=== PATIENT | female | born 1995 | race Caucasian/White ===

== ENCOUNTER 2017-11-07 12:00 | Inpatient (IN) ==
[2017-11-07] MEDS ORDERED: Famotidine 20 MG/2 ML VIAL IVP PRN (12:46)
[2017-11-07] MEDS ORDERED: Naloxone 0.4 MG/ML INJ IVP PRN (12:46)
[2017-11-07] MEDS ORDERED: Metoclopramide 10 MG/2 ML VIAL IVP PRN (12:46)
[2017-11-07 13:13] LABS: Basophils % 0.2 %; Eosinophils # 0.1 K/mcL (0.0-0.6); Eosinophils % 0.4 %; Hemoglobin 12.1 g/dL (11.5-15.4); Immature Granulocytes % 0.7 % (0-4); Mean Corpuscular HGB Conc 34.6 g/dL (31.6-35.5); Mean Corpuscular Hemoglobin 29.3 pg (28.0-33.3); Mean Corpuscular Volume 84.7 fL (83.0-100.0); Mean Platelet Volume 9.7 fL (9.4-12.4); Monocytes # 0.5 K/mcL (0.0-1.3); Neutrophils # 9.7 K/mcL (1.6-8.9); Platelet Count 238 K/mcL (140-400); Red Blood Count 4.13 M/mcL (3.82-4.97); Red Cell Distribution Width 13.1 % (11.5-14.5); Segmented Neutrophils % 78.7 %
[2017-11-07 13:30] LABS: Amphetamine Screen,Urine Negative ng/mL (Cutoff=1000); Barbiturate Screen,Urine Negative ng/mL (Cutoff=200); Benzodiazepines Screen,Urine Negative ng/mL (Cutoff=200); Cannabinoid Screen,Urine Negative ng/mL (Cutoff = 50); Cocaine Screen,Urine Negative ng/mL (Cutoff= 300); Opiate Screen,Urine Negative ng/mL (Cutoff=300); Phencyclidine Screen,Urine Negative ng/mL (Cutoff=25)
[2017-11-07] MEDS: miSOPROStol 25 MCG TABLET VG SCH ×2 (14:53→18:44)
--- NOTE | 2017-11-07 15:21 | OB/GYN History & Physical ---
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 Wade is a 22 year old female at 39 weeks 3 days who presents for induction of labor. Notes she occasionally has been feeling mild contractions. Endorses movement, but denies vaginal bleeding, loss of clear fluid. complicated by maternal anemia. Currently denies headache, blurry vision, SOB, nausea, vomiting. Patient has been under the care of Dr. Smith throughout her . Dr. Smith is the current OB construction plumber. Labs: Blood Type: O negative Rh Status: Negative Hep B Surface Ag: Nonreactive HIV Ab: Nonreactive Treponema Ab: Negative G/C: Negative Varicella: Immune Rubella: Immune Urine Drug Screen: Negative Past Med Surg Social Fam HX - Past Medical History Attestation: Yes The following information was validated with the patient. Source: patient Medical history: no medical history Psychiatric history: no psych history - Past Surgical History Surgical History: no surgical history - Social History Smoking Status: Never smoker Smokeless Tobacco Status: No Alcohol use: none Drug use: none - Family History Mother Living Status: Still Living Hx Family Cardiac Disorders: No Hx Family Respiratory Disorders: No Hx Family Cancer: No Hx Family GI Disorders: No Hx Family Genitourinary Disorders: No Hx Family Endocrine Disorder: No Hx Family Musculoskeletal Disorders: No Hx Family Neuromuscular Disorders: No Hx Family Neurologic Disorders: No Hx Family HEENT Disorders: No Hx Family Autoimmune Disorders: No Hx Family Reproductive Disorders: No Hx Family Psychosocial Disorders: No Hx Family Medical Disorders: No Obstetrical History - Pregnancies : 1 Para: 0 Term: 0 : 0 Ab's: 0 Livin Medications and Allergies Vit/Iron Fumarate/FA [ Tablet] 1 each PO DAILY 11/07/17 [ History] 3 Allergy/AdvReac Type Severity Reaction Status Date / Time No Known Allergies Allergy Verified 04/05/16 17:25 Review of System OB All systems PM: reviewed and no additional remarkable complaints except as stated Exam - Vital Signs Vital signs: Vital Signs Reviewed and Stable - Constitutional Constitutional: well developed, well nourished, no acute distress, average body habitus - HEENT HEENT: EOMI, Normocephaly, Mucus Membranes Moist - Neck Neck exam: full ROM, normal inspection - Lungs Respiratory exam: CTAB - Cardiovascular Cardiovascular exam: RRR, +S1, +S2 - Abdomen Abdomen: Present: bowel sounds normal, gravid, non tender - Extremities Extremities exam: full ROM, normal capillary refill, normal inspection, warm, radial pulses palpable and symmetrical Deep Tendon Reflex Grade: 2+ Normal - Cervix Dilation: 1 (Per RN) Effacement: 50 Station: -2 Results Result Diagrams: 11/07/17 12:45 Abnormal lab results WBC 12.3 K/mcL (4.3-11.1) H 11/07/17 12:45 Hct 35.0 % (35.3-44.9) L 11/07/17 12:45 Neutrophils # 9.7 K/mcL (1.6-8.9) H 11/07/17 12:45 All other labs normal. - VTE Reasons for not Prescribing Prophylaxis: Treatment not Indicated - Low risk for VTE
[2017-11-07] MEDS ORDERED: *HR* FentaNYL (PF) 100 MCG/2 ML VIAL EP ONE (17:11)
[2017-11-07] MEDS ORDERED: Bupivacaine-MPF 0.25% 10 ML VIAL EP ONE (17:11)
--- NOTE | 2017-11-07 17:11 | Anesthesia Evaluation PreOp ---
Date of Encounter: 11/07/17 Time of Encounter: 17:09 - Past History Planned Operation: YENNIFER Cardiac History: Denies any Significant Hx Pulmonary History: Denies Any Significant HX CAREER DEVELOPMENT ASSOCIATE History: Denies Any Significant HX Other Medical History: Denies Any Significant HX Anesthesia History: No Prior Anesthetic Complications (never had any procedure requiring GA or NA; denies family h/o GA complications) : Yes Alcohol Use: none Drug use: none Medications and Allergies Vit/Iron Fumarate/FA [ Tablet] 1 each PO DAILY 11/07/17 [ History] 3 Allergy/AdvReac Type Severity Reaction Status Date / Time No Known Allergies Allergy Verified 04/05/16 17:25 - Meds/Allergy Pre-op Review Medications Reviewed: Yes Allergies Reviewed: Yes Beta Blockers on Current Med List: No Anesthesia Results - Labs 11/07/17 12:45 Anesthesia Exam 139/70, HR 104, RR 16 O2 Sat Height 1.57 m Weight 108.59 kg NPO (# of Hours): solids > 8hrs Pain Scale: 0 Pain Scale Used: Numeric (1 - 10) - HEENT Pupil (Motor): Pupils equal Mallampati: III Teeth: Normal Oral Opening: Greater than 3 - CAREER DEVELOPMENT ASSOCIATE LOC: Oriented CAREER DEVELOPMENT ASSOCIATE Motor: Normal RUE, Normal LUE, Normal RLE, Normal LLE, Normal Face CAREER DEVELOPMENT ASSOCIATE Sensory: Normal: RUE, LUE, RLE, LLE, Face - Cardiac Rhythm: Regular Murmur: None - Pulmonary Breath Sounds: bilateral Clear Respiratory Effort: Symmetrical Anesthesia Assess/Plan ASA Score: 2 Modified Fina Scale for Level of Consciousness: Cooperative, oriented, and tranquil Anesthetic Plan: Regional Autologous Blood: No Monitoring Plan: Standard Monitors Recovery Plan: Other
[2017-11-07] MEDS ORDERED: Bupivacaine-MPF 0.25% 10 ML VIAL ONE (17:13)
[2017-11-07] MEDS ORDERED: Lidocaine -MPF 1% 5 ML AMPUL ONE (17:13)
[2017-11-07] MEDS ORDERED: Lidocaine -MPF 2% 5 ML VIAL ONE (17:14)
[2017-11-07] MEDS ORDERED: *HR* FentaNYL (PF) 100 MCG/2 ML VIAL ONE (17:14)
[2017-11-07] MEDS ORDERED: Epidural Premix (fent/bupiv) 110 ML EP SCH (17:15)
--- NOTE | 2017-11-07 18:30 | OB Labor Progress Note ---
Date of Encounter: 11/07/17 Time of Encounter: 18:30 Labor Progress Note - Subjective Subjective: patient is comfortable - Vital Signs Vital Signs: VSS - Cervix Cervix: 1cm - Heart Tones Heart Tones: CAT 1 - Plan Plan: 2nd dose of cytotec given @ 6:30 reevaluate after dose is completed
--- NOTE | 2017-11-07 23:41 | OB Labor Progress Note ---
Date of Encounter: 11/07/17 Time of Encounter: 23:40 Labor Progress Note - Subjective Subjective: patient doing well - Vital Signs Vital Signs: VSS - Cervix Cervix: 2/60 - Heart Tones Heart Tones: CAT 1 - Plan Plan: will place caro balloon
[2017-11-08] MEDS: *HR* Nalbuphine 10 MG/ML AMPUL IVP PRN ×2 (04:40→10:47)
--- NOTE | 2017-11-08 07:04 | OB Labor Progress Note ---
Date of Encounter: 11/08/17 Time of Encounter: 07:04 Labor Progress Note - Subjective Subjective: she is feeling some ctxs but still comfortable - Vital Signs Vital Signs: VSS - Cervix Cervix: 1cm - Heart Tones Heart Tones: CAT 1 - Plan Plan: caro in place x6hrs, will re evaluate at shift change
[2017-11-08] MEDS ORDERED: Oxytocin 20 units/ LR 1000 mL 20 UNIT/1,000 ML BAG IVC SCH ×2 (07:45→23:17)
[2017-11-08] MEDS ORDERED: Ringers Solution, Lactated 1,000 ML ONE (08:01)
[2017-11-08] MEDS: Ringers Solution, Lactated 1,000 ML IVC SCH ×2 (08:26→15:59)
--- NOTE | 2017-11-08 09:20 | OB Labor Progress Note ---
Date of Encounter: 11/08/17 Time of Encounter: 09:18 Labor Progress Note - Subjective Subjective: Pt states feels occasional contractions - Cervix Cervix: 4-5/75/-2 - Heart Tones Heart Tones: 130/moderate/+accels/-decels - [place]edom Dukedom: q6-8 - Interventions Interventions: AROM for small amount clear fluid - Plan Plan: Continue pitocin per policy frequent repositioning anticipate
--- NOTE | 2017-11-08 13:28 | Anesthesia Procedures ---
Date of Encounter: 11/08/17 Time of Encounter: 12:15 Procedures: Anesthesia - Epidural/Spinal Patient ID/Chart reviewed: Yes Patient examined: Yes OB Eval: Gestational age: 39 OB Eval: : 1 OB Eval: Hx Para: 0 OB Eval: Dilated at (cm): 5 OB Eval: Contractions: Non-stressed pattern Supplemental Oxygen: None/Room Air Site Prep: Aseptic Technique, Sterile prep and drape, Povidone-Iodine 1% Patient position: upright Amount of Local Anesthetic used: 3 Touhy Needle Gauge: 18 Touhy Needle Depth (cm): 6 Catheter Depth at Skin (cm): 12 Test Dose (1.5% Lido + Epi): Volume given (mls): 3 Test Dose Result: Negative Infusion Rate (mls/hr): [address]: Tegaderm, Tape Interspace Used: L4-L5 Loss of Resistance (GISSEL): Yes Blood: No CSF: No Paresthesia: No Vitals + FHT's: stable throughout see nursing notes. epidural placed with ease no complications.
--- NOTE | 2017-11-08 14:01 | OB Labor Progress Note ---
Date of Encounter: 11/08/17 Time of Encounter: 00:15 Labor Progress Note - Subjective Subjective: Patient reports mild discomfort with contractions. Endorses good movement - Cervix Cervix: 1-2/70/-3 - Heart Tones Heart Tones: heart rate category 1 - [place]: Contractions 5+ minutes apart and palpate mild - Interventions Interventions: SVE Forde balloon placement-inflated to 60 mL - Plan Plan: Continue induction management Assessment Forde balloon hourly Anticipate
--- NOTE | 2017-11-08 21:26 | OB/GYN Progress Note ---
Date of Encounter: 11/08/17 Time of Encounter: 21:05 - Assessment and Plan (1) Spontaneous vaginal delivery Current Visit: Yes Status: Acute (2) Nuchal cord affecting delivery Current Visit: Yes Status: Acute (3) 39 weeks gestation of Current Visit: Yes Status: Acute Subjective - Subjective Principal diagnosis: S/P Vaginal Delivery Interval history: 22 year old female who is 39 weeks 4 days had a spontaneous vaginal delivery. Male 3165 g or 7 lbs DAV Tight nuchal chord around neck at time of delivery. EBL 75 mL Placenta intact Patient hemodynamically stable Patient reports: appetite normal, voiding normally, pain well controlled, ambulating normally [place]: doing well Objective - Latest Vital Signs Latest vital signs: Intake and Output 11/08/17 11/08/17 11/08/17 07:59 15:59 23:59 Intake Total 1000 / 1000 Balance 1000 / 1000 Intake: IV Fluids 1000 / 1000 Lactated Ringers 1,000 ML @ 125 1000 / 1000 mls/hr IVC .Q8H [facility] Rx#: [id number] - Exam Extremities: Present: normal Abdomen: Present: gravid. Absent: rigidity, distention Uterus: Present: firm Uterus Position: 1 Finger Above Umbilicus, Midline
--- NOTE | 2017-11-08 21:41 | OB/GYN Procedure Note ---
Delivery - Delivery Date: 11/08/17 Provider: Matti Landis (Lito Lazo, PGY-2) Intrapartum events: none Delivery induction: AROM, oxytocin, caro, misoprostol Delivery monitor: external FHT, external uterine Anesthesia: local, epidural Quantitated Blood Loss: 75 - Infant (s) Infant A Delivery Date: 11/08/17 Delivery Time: 21:05 Presentation: vertex Position: DAV Route of delivery: Gender: Male Viability: Viable Pounds: 7 Ounces: 0 Weight Gram: 3165 kg at 1 minute: 8 at 5 mins: 9 Shoulder Dystocia: not encountered Specimens collected: cord blood Placenta: spontaneous Cord: nuchal cord, 3 umbilical vessels, nuchal cut - Repair Episiotomy: none Laceration Description: None - Complications Delivery complications: none - Disposition Mom disposition: stable in LDR disposition: stable in LDR - Comments Comments: Patient progressed to complete and on the perineum. Delivered a live male weighing 7 pounds. Apgars were 8 and 9. Estimated blood loss 75 mL. Placenta delivered spontaneously intact 3 vessels. No laceration or episiotomy was encountered.
[2017-11-08] MEDS ORDERED: Acetaminophen 325 MG TABLET PO PRN (23:17)
[2017-11-08] MEDS ORDERED: Lanolin 7 G OINT...G. TP PRN (23:17)
[2017-11-08] MEDS ORDERED: Rho Immune Globulin 1,500 UNIT SYRINGE IM PRN (23:17)
[2017-11-08] MEDS ORDERED: Benzocaine/Menthol 56 GM AEROSOL SPRAY TP PRN (23:17)
[2017-11-09 07:18] LABS: Basophils % 0.2 %; Hematocrit 32.2 % (35.3-44.9); Hemoglobin 11.1 g/dL (11.5-15.4); Immature Granulocytes % 0.8 % (0-4); Lymphocytes # 1.8 K/mcL (0.6-4.6); Lymphocytes % 7.8 %; Mean Corpuscular HGB Conc 34.5 g/dL (31.6-35.5); Mean Corpuscular Volume 84.1 fL (83.0-100.0); Mean Platelet Volume 9.7 fL (9.4-12.4); Monocytes % 4.1 %; Neutrophils # 20.1 K/mcL (1.6-8.9); Platelet Count 234 K/mcL (140-400); Red Blood Count 3.83 M/mcL (3.82-4.97); Red Cell Distribution Width 13.3 % (11.5-14.5); Segmented Neutrophils % 87.1 %
[2017-11-09 07:22] LABS: Basophils # 0.1 K/mcL (0.0-0.2)
[2017-11-09] MEDS ORDERED: Azithromycin 250 MG TABLET PO ONE (09:13)
--- NOTE | 2017-11-09 09:20 | Discharge Summary ---
Date of Encounter: 11/09/17 Time of Encounter: 09:15 - Discharge Medications Home Medications: Vit/Iron Fumarate/FA [ Tablet] 1 each PO DAILY 11/07/17 [ History] Allergies/Adverse Reactions: 3 Allergy/AdvReac Type Severity Reaction Status Date / Time No Known Allergies Allergy Verified 04/05/16 17:25 Data Procedures and tests throughout hospitalization: Laboratory Tests 11/07/17 11/07/17 11/08/17 12:45 12:45 22:00 WBC 12.3 H RBC 4.13 Hgb 12.1 Hct 35.0 L MCV 84.7 MCH 29.3 MCHC 34.6 RDW 13.1 Plt Count 238 MPV 9.7 Immature Gran % 0.7 Seg Neutrophils % 78.7 Lymphocytes % 16.0 Monocytes % 4.0 Eosinophils % 0.4 Basophils % 0.2 Neutrophils # 9.7 H Lymphocytes # 2.0 Monocytes # 0.5 Eosinophils # 0.1 Basophils # 0.0 Urine Opiates Screen Negative Ur Barbiturates Screen Negative Ur Phencyclidine Scrn Negative Ur Amphetamines Screen Negative U Benzodiazepines Scrn Negative Urine Cocaine Screen Negative U Marijuana (THC) Screen Negative Ur Drug Screen Interp See Below Baby's Blood Type O RH NEGATIVE Mother's Blood Type O RH NEGATIVE Rhogam Indicated NO 11/09/17 07:05 WBC 23.1 H D RBC 3.83 Hgb 11.1 L Hct 32.2 L MCV 84.1 MCH 29.0 MCHC 34.5 RDW 13.3 Plt Count 234 MPV 9.7 Immature Gran % 0.8 Seg Neutrophils % 87.1 Lymphocytes % 7.8 Monocytes % 4.1 Eosinophils % 0.0 Basophils % 0.2 Neutrophils # 20.1 H Lymphocytes # 1.8 Monocytes # 1.0 Eosinophils # 0.0 Basophils # 0.1 Urine Opiates Screen Ur Barbiturates Screen Ur Phencyclidine Scrn Ur Amphetamines Screen U Benzodiazepines Scrn Urine Cocaine Screen U Marijuana (THC) Screen Ur Drug Screen Interp Baby's Blood Type Mother's Blood Type Rhogam Indicated Labs on day of discharge: Labs from last 24 hours 11/09/17 11/08/17 07:05 22:00 WBC 23.1 H D RBC 3.83 Hgb 11.1 L Hct 32.2 L MCV 84.1 MCH 29.0 MCHC 34.5 RDW 13.3 Plt Count 234 MPV 9.7 Immature Gran % 0.8 Seg Neutrophils % 87.1 Lymphocytes % 7.8 Monocytes % 4.1 Eosinophils % 0.0 Basophils % 0.2 Neutrophils # 20.1 H Lymphocytes # 1.8 Monocytes # 1.0 Eosinophils # 0.0 Basophils # 0.1 Baby's Blood Type O RH NEGATIVE Mother's Blood Type O RH NEGATIVE Rhogam Indicated NO Date of admission: 11/07/17 12:10 Primary care physician: PCP NONE Consults: 11/08/17 23:17 Consult to [employer] [CONS] Routine Comment: Vaginal delivery, consult needed Discharging clinician: Nakia Chase Anticipated date of discharge: 11/09/17 - Discharge Instructions Follow Up With: NONE,PCP [Primary Care Provider] - Hospital Course Episiotomy: none Time Attestation: Total time spent providing and/or coordinating discharge services: Exam - Constitutional Vitals: Temp Pulse Resp BP Pulse Ox 98.6 F 100 16 126/75 98 11/09/17 04:25 11/09/17 04:25 11/09/17 04:25 11/09/17 04:25 11/09/17 04:25
--- NOTE | 2017-11-09 09:25 | OB/GYN Progress Note ---
Date of Encounter: 11/09/17 Time of Encounter: 09:23 - Assessment and Plan (1) Spontaneous vaginal delivery Current Visit: Yes Status: Acute Continue routine labor management Discharge home tomorrow (2) Elevated white blood cell count, unspecified Current Visit: Yes Status: Acute Repeat at 1900 PO ABX today x 1 Will reevaluate need for IV vs PO vs no ABX after CBC this evening. Qualifiers: Leukocytosis type: other Qualified Code(s): D72.828 - Other elevated white blood cell count Subjective - Subjective Principal diagnosis: Vaginal Delivery Interval history: S/P vaginal delivery day 1. VSS Pain is well controlled Lochia is light and without clots Voiding and passing flatus without difficulty Breast feeding well. Elevated WBC count with mild elevation in heartrate. Will repeat CBC at 1900 and give one dose of PO abx. Reevaluate throughout date and after CBC Discharge home tomorrow. Patient reports: appetite normal, voiding normally, pain well controlled, ambulating normally : doing well, bottle feeding Objective - Latest Vital Signs Latest vital signs: Vital Signs Temp Pulse Resp BP Pulse Ox 11/09/17 08:20 98.7 F 90 16 113/74 97 11/09/17 04:25 98.6 F 100 16 126/75 98 11/09/17 02:20 99.1 F 94 20 114/70 98 11/09/17 01:15 99.4 F 106 20 121/77 11/09/17 00:20 98.9 F 91 16 142/80 97 Intake and Output 11/08/17 11/09/17 11/09/17 23:59 07:59 15:59 Intake Total 300 / 300 Output Total 375 / 375 300 / 300 Balance -375 / -375 0 / 0 Intake: Oral 300 / 300 Output: Urine 300 / 300 Estimated Blood Loss 75 / 75 Catheter 300 / 300 Other: Weight 107.4 kg Patient Weight 11/09/17 23:59 Weight 107.4 kg - Exam Lungs: bilateral: normal Chest: Normal S1, Normal S2 Extremities: Present: normal Abdomen: Present: normal appearance, soft. Absent: gravid, tenderness Uterus: Present: normal, firm Uterus Position: At Umbilicus, Midline - Labs Labs: Laboratory Results - last 24 hr 11/08/17 11/09/17 22:00 07:05 WBC 23.1 H D RBC 3.83 Hgb 11.1 L Hct 32.2 L MCV 84.1 MCH 29.0 MCHC 34.5 RDW 13.3 Plt Count 234 MPV 9.7 Immature Gran % 0.8 Seg Neutrophils % 87.1 Lymphocytes % 7.8 Monocytes % 4.1 Eosinophils % 0.0 Basophils % 0.2 Neutrophils # 20.1 H Lymphocytes # 1.8 Monocytes # 1.0 Eosinophils # 0.0 Basophils # 0.1 Baby's Blood Type O RH NEGATIVE Mother's Blood Type O RH NEGATIVE Rhogam Indicated NO
[2017-11-09] MEDS: Prenatal Vit/FA 1 EACH TABLET PO SCH (09:49)
[2017-11-09 19:14] LABS: Basophils % 0.2 %; Eosinophils % 0.2 %; Hematocrit 32.3 % (35.3-44.9); Hemoglobin 10.7 g/dL (11.5-15.4); Immature Granulocytes % 0.7 % (0-4); Lymphocytes % 15.9 %; Mean Corpuscular HGB Conc 33.1 g/dL (31.6-35.5); Mean Corpuscular Hemoglobin 28.7 pg (28.0-33.3); Mean Corpuscular Volume 86.6 fL (83.0-100.0); Mean Platelet Volume 9.8 fL (9.4-12.4); Monocytes # 0.7 K/mcL (0.0-1.3); Monocytes % 3.7 %; Neutrophils # 14.9 K/mcL (1.6-8.9); Platelet Count 239 K/mcL (140-400); Red Blood Count 3.73 M/mcL (3.82-4.97); Red Cell Distribution Width 13.6 % (11.5-14.5); Segmented Neutrophils % 79.3 %
[2017-11-09] MEDS: Ibuprofen 600 MG TABLET PO PRN (20:32)
[2017-11-10] MEDS: Ibuprofen 600 MG TABLET PO PRN ×2 (06:30→14:46)
[2017-11-10 08:29] VITALS: BP 122/72
[2017-11-10] MEDS ORDERED: Azithromycin 250 MG TABLET PO SCH (09:00)
[2017-11-10] MEDS: Prenatal Vit/FA 1 EACH TABLET PO SCH (09:39)
--- NOTE | 2017-11-10 10:25 | Discharge Summary ---
Date of Encounter: 11/10/17 Time of Encounter: 10:22 - Discharge Diagnosis (1) Spontaneous vaginal delivery Priority: Primary Status: Acute Comments: Doing well s/p vaginal delivery Day 2 Pain is well controlled Lochia is light and without clots VSS Passing flatus and voiding without difficulty Discharge home today (2) Elevated white blood cell count, unspecified Priority: Secondary Status: Acute Comments: Improved elevated WBC count, will discharge home with PO ABX Qualifiers: Leukocytosis type: other Qualified Code(s): D72.828 - Other elevated white blood cell count - Discharge Medications Prescriptions: Ibuprofen [Motrin] 600 mg PO Q6HR PRN #30 tablet PRN Reason: Cramping Azithromycin [Zithromax] 250 mg PO DAILY #3 tablet Docusate [Colace] 100 mg PO BID PRN #30 capsule PRN Reason: Constipation Ferrous Sulfate 325 mg PO DAILY #90 tablet Home Medications: Vit/Iron Fumarate/FA [ Tablet] 1 each PO DAILY 11/07/17 [ History] Acetaminophen [Tylenol] 650 mg PO Q6HR PRN tablet 11/10/17 [Rx] Azithromycin [Zithromax] 250 mg PO DAILY #3 tablet 11/10/17 [Rx] Benzocaine/Menthol [place] [Dermoplast [place]] 1 appl TP QID PRN aerosol 11/10/17 [Rx] Calcium Carbonate [Tums] 1,000 mg PO TID PRN tab.chew 11/10/17 [Rx] Docusate [Colace] 100 mg PO BID PRN #30 capsule 11/10/17 [Rx] Ferrous Sulfate 325 mg PO DAILY #90 tablet 11/10/17 [Rx] Ibuprofen [Motrin] 600 mg PO Q6HR PRN #30 tablet 11/10/17 [Rx] Lanolin [Lansinoh] 1 appl TP QID PRN oint...g. 11/10/17 [Rx] Allergies/Adverse Reactions: 3 Allergy/AdvReac Type Severity Reaction Status Date / Time No Known Allergies Allergy Verified 04/05/16 17:25 Data Procedures and tests throughout hospitalization: Laboratory Tests 11/07/17 11/07/17 11/08/17 12:45 12:45 22:00 WBC 12.3 H RBC 4.13 Hgb 12.1 Hct 35.0 L MCV 84.7 MCH 29.3 MCHC 34.6 RDW 13.1 Plt Count 238 MPV 9.7 Immature Gran % 0.7 Seg Neutrophils % 78.7 Lymphocytes % 16.0 Monocytes % 4.0 Eosinophils % 0.4 Basophils % 0.2 Neutrophils # 9.7 H Lymphocytes # 2.0 Monocytes # 0.5 Eosinophils # 0.1 Basophils # 0.0 Urine Opiates Screen Negative Ur Barbiturates Screen Negative Ur Phencyclidine Scrn Negative Ur Amphetamines Screen Negative U Benzodiazepines Scrn Negative Urine Cocaine Screen Negative U Marijuana (THC) Screen Negative Ur Drug Screen Interp See Below Baby's Blood Type O RH NEGATIVE Mother's Blood Type O RH NEGATIVE Rhogam Indicated NO 11/09/17 11/09/17 07:05 18:37 WBC 23.1 H D 18.8 H RBC 3.83 3.73 L Hgb 11.1 L 10.7 L Hct 32.2 L 32.3 L MCV 84.1 86.6 MCH 29.0 28.7 MCHC 34.5 33.1 RDW 13.3 13.6 Plt Count 234 239 MPV 9.7 9.8 Immature Gran % 0.8 0.7 Seg Neutrophils % 87.1 79.3 Lymphocytes % 7.8 15.9 Monocytes % 4.1 3.7 Eosinophils % 0.0 0.2 Basophils % 0.2 0.2 Neutrophils # 20.1 H 14.9 H Lymphocytes # 1.8 3.0 Monocytes # 1.0 0.7 Eosinophils # 0.0 0.0 Basophils # 0.1 0.0 Urine Opiates Screen Ur Barbiturates Screen Ur Phencyclidine Scrn Ur Amphetamines Screen U Benzodiazepines Scrn Urine Cocaine Screen U Marijuana (THC) Screen Ur Drug Screen Interp Baby's Blood Type Mother's Blood Type Rhogam Indicated Labs on day of discharge: Labs from last 24 hours 11/09/17 18:37 WBC 18.8 H RBC 3.73 L Hgb 10.7 L Hct 32.3 L MCV 86.6 MCH 28.7 MCHC 33.1 RDW 13.6 Plt Count 239 MPV 9.8 Immature Gran % 0.7 Seg Neutrophils % 79.3 Lymphocytes % 15.9 Monocytes % 3.7 Eosinophils % 0.2 Basophils % 0.2 Neutrophils # 14.9 H Lymphocytes # 3.0 Monocytes # 0.7 Eosinophils # 0.0 Basophils # 0.0 Date of admission: 11/07/17 12:10 Primary care physician: PCP NONE Consults: 11/08/17 23:17 Consult to [employer] [CONS] Routine Comment: Vaginal delivery, consult needed Discharging clinician: Nakia Chase Anticipated date of discharge: 11/10/17 - Patient Status Disposition: Home, Self-Care Condition: Good Functional capacity at discharge: independent ambulation Overall status at discharge: patient is progressing back to baseline - Discharge Instructions Follow Up With: NONE,PCP [Primary Care Provider] - Matti Landis MD [Partnered Physician] - - Diet and Activity Activity: increase activity as tolerated Diet: regular diet Hospital Course Reason for admission: IUP at term Delivery: Episiotomy: none Laceration: none Other procedures: none Discharge diagnosis: IUP at term delivered baby: male Time Attestation: Total time spent providing and/or coordinating discharge services: Time Spent: Less than 30 minutes Exam - Constitutional Vitals: Temp Pulse Resp BP Pulse Ox 98.1 F 62 16 122/72 99 11/10/17 07:30 11/10/17 07:30 11/10/17 07:30 11/10/17 07:30 11/09/17 20:19 General appearance IM: cooperative, A&O X 3, pleasant - Respiratory Respiratory exam: Present: CTAB - Cardiovascular Cardiovascular exam IM: Present: RRR, +S1, +S2 - GI/Abdominal GI/Abdominal exam IM: normal bowel sounds - Rectal Rectal exam: deferred - Uterine Tone: Firm Uterus Position: At Umbilicus, Midline - Extremities Exam Extremities exam IM: Present: normal capillary refill, normal inspection, radial pulses palpable and symmetrical - Neurological Exam Neurological exam: alert, oriented X3, reflexes normal
== END 2017-11-10 15:53 | disposition home or self-care (01) | DRG 560 ==
LOC: 1NENULAB 12:10 → 1NENUOBS 11-08 23:15
PROVIDERS: ADMIT Student in an Organized Health Care Education/Training Program; ATTEND Student in an Organized Health Care Education/Training Program